=== PATIENT | male | born 1930 | race Caucasian/White ===

== ENCOUNTER → 2016-10-09 | Outpatient (CLI) | payer OTHER, MEDICARE ==
[~2016-10-09] MED LIST: ALLEGRA ALLERG180 MG PO; ALLEGRA60 MG PO; ASPIRIN CHEWABL81 M1 PO; ASPIRIN81 M2 PO; CELEBREX200 MG PO; COLACE100 MG PO; COLACE50 MG PO; COUMADIN,JANTOVE2 MG PO; COUMADIN3 MG PO; Colace PO; DIOVAN160 MG PO; Dulcolax PO; Duragesic TD; Ecotrin PO; GUAIFENESIN600 M1 PO; KEFLEX500 MG PO; LASIX40 MG PO; LIDODERM 5% P1 PATCH TD; LIPITOR80 MG PO; LOPRESSOR50 MG PO; LOW DOSE ASPIRI81 M2 PO; Lopressor PO; METAMUCIL CAPSU1 CAP PO; MUCINEX D ER T1 EAC1 PO; MUCINEX DM1 TABLET PO; NEOSPORIN ANT70.8 GM TP; NORCO 10/3251 TABLET PO; NORCO 5/3251 TABLET PO; OCUVITE1 TABLET PO; PARAFON FORTE500 MG PO; PRILOSEC20 MG PO; PriLOSEC PO; Procardia XL,Adalat PO; SENOKOT S,PE1 TABLET PO; THERAGRAN1 TABLET PO; TOVIAZ4 MG PO; TRICOR145 MG PO; Tylenol Regular Stre PO; Vicodin,Lortab 5/500 PO; Vitamin D PO; ZADITOR 0.100 DROP/5 OP; Zocor PO; ZyrTEC PO
== END | disposition home or self-care (01) ==
LOC: RAD 14:43
DX: R60.0 Localized edema (principal)
CPT/HCPCS: 93971